=== PATIENT | female | born 1995 | race Caucasian/White ===

== ENCOUNTER 2017-03-10 12:31 | Emergency (ER) | payer OTHER ==
[2017-03-10 12:37] VITALS: BP 141/79; PULSE 79; TEMP 98; BMI 19.6
[2017-03-10] MEDS ORDERED: DEXAMETHASONE LIQUID 0.5 MG/5 ML 240 ML BULK BOTTLE PO ONE (15:38)
--- NOTE | 2017-03-10 15:49 | PDOC ---
History of Present Illness - General Chief Complaint: Syncope/Near Syncope Stated Complaint: SYNCOPE, THROAT PAIN Time Seen by Provider: 03/10/17 15:10 History Source: Patient Exam Limitations: No Limitations - History of Present Illness Initial Comments: 03/10/17 15:50 This is a 22 yo woman without PMH presents with syncope on 03/09 and currently with a sore throat. She states she was walking to go to bed then awoke on floor of her bedroom. She states this has happened in the past but was never fully worked up. She reports her "throat is closing" but is able to swallow her own saliva and denies vocal changes. Large visible mass present to right anterolateral neck. She denies fevers, chills, chest pain, odynophagia, vomiting, chest pain or SOB. Timing/Duration: 24 hours Severity: mild Associated Symptoms: reports: denies symptoms Past History - Travel Traveled outside of the country in the last 30 days: No Close contact w/someone who was outside of country & ill: No - Past Medical History Allergies/Adverse Reactions: Allergies Allergy/AdvReac Type Severity Reaction Status Date / Time No Known Allergies Allergy Verified 03/10/17 12:35 Other medical history: denies - Immunization History Immunization Up to Date: Yes - Psycho/Social/Smoking Cessation Hx Suicidal Ideation: No Smoking History: Never smoked Hx Alcohol Use: No Drug/Substance Use Hx: No Substance Use Type: None Review of Systems - Review of Systems Able to Perform ROS?: Yes Is the patient limited Syrian proficient: No Constitutional: No: Symptoms Reported HEENTM: Yes: Throat Swelling Respiratory: No: Symptoms reported Cardiac (ROS): Yes: Syncope (on 03/09) ABD/GI: No: Symptoms Reported : No: Symptoms Reported Musculoskeletal: No: Symptoms Reported Integumentary: No: Symptoms Reported Neurological: No: Symptoms reported *Physical Exam - Vital Signs Last Vital Signs Temp Pulse Resp BP Pulse Ox 98.0 F 79 18 141/79 100 03/10/17 12:35 03/10/17 12:35 03/10/17 12:35 03/10/17 12:35 03/10/17 12:35 - Physical Exam General Appearance: Yes: Appropriately Dressed. No: Apparent Distress HEENT: positive: EOMI, MARY, Normal ENT Inspection, Normal Voice, Tonsillar Erythema (left side only) Neck: positive: Trachea midline, Lymphadenopathy (R). negative: Carotid bruit Respiratory/Chest: positive: Lungs Clear, Normal Breath Sounds. negative: Respiratory Distress, Accessory Muscle Use Cardiovascular: positive: Regular Rhythm, Regular Rate, S1, S2. negative: Edema , JVD, Murmur Gastrointestinal/Abdominal: positive: Normal Bowel Sounds, Soft. negative: Tender, Organomegaly Lymphatic: positive: Adenopathy (right axilla) Musculoskeletal: positive: Normal Inspection. negative: CVA Tenderness Extremity: positive: Normal Capillary Refill, Normal Inspection, Normal Range of Motion Integumentary: positive: Normal Color, Dry, Warm Neurologic: positive: director clinical research II-XII NML intact, Fully Oriented, Alert, Normal Mood/ Affect, Normal Response, Motor Strength 11/25 Medical Decision Making - Medical Decision Making 03/10/17 16:56 A/P: This is a 22 yo woman without PMH presents with syncope on 03/09 and currently with a sore throat. She states she was walking to go to bed then awoke on floor of her bedroom. She states this has happened in the past but was never fully worked up. She reports her "throat is closing" but is able to swallow her own saliva and denies vocal changes. Large visible mass present to right anterolateral neck. She denies fevers, chills, chest pain, odynophagia, vomiting, chest pain or SOB. Pt with family h/o thyroid disorder. Large palpable lymph node present in right axilla. - CBC, CMP, TSH - CT neck - decadron 10mg PO - reassess *DC/Admit/Observation/Transfer Diagnosis at time of Disposition: Eloped - Discharge Dispostion Disposition: ELOPED Condition at time of disposition: Unchanged/Unknown
--- NOTE | 2017-03-10 15:51 | PDOC ---
*Physical Exam - Vital Signs Last Vital Signs Temp Pulse Resp BP Pulse Ox 98.0 F 79 18 141/79 100 03/10/17 12:35 03/10/17 12:35 03/10/17 12:35 03/10/17 12:35 03/10/17 12:35 Medical Decision Making - Medical Decision Making 03/10/17 23:08 Pt eloped from ER prior to my evaluation. Pt was unable to be located in ER. Attempts to call pt's home were unanswered. *DC/Admit/Observation/Transfer Diagnosis at time of Disposition: Eloped - Discharge Dispostion Disposition: ELOPED
[2017-03-10] MEDS ORDERED: DEXAMETHASONE SOD PHOSPHATE 10 MG/1 ML VIAL ONE (16:22)
== END 2017-03-10 16:27 | disposition left against medical advice (07) ==
LOC: JER 12:31
DX: J02.9 Acute pharyngitis, unspecified (principal)
CPT/HCPCS: 99281-25

== ENCOUNTER 2017-04-27 12:18 | Emergency (ER) | payer OTHER ==
[2017-04-27 12:23] VITALS: BP 110/61; PULSE 91; TEMP 98.9; BMI 19.4
--- NOTE | 2017-04-27 12:42 | PDOC ---
History of Present Illness - General Chief Complaint: Pain Stated Complaint: PAIN ABD/NAUSEA Time Seen by Provider: 04/27/17 12:41 - History of Present Illness Initial Comments: 04/27/17 12:41 Ms. Melendez is a 22 yo female with no significant past medical history who presents to the emergency department sent from urgent care with complaints of lower abdominal pain bilaterally for the last 2 days. She says that the pain is about an 8/10, constant, and has caused her to vomit several times. She started her period on monday but says that this is different than her usual cramps which are typically lower. The patient denies chest pain, shortness of breath, headache and dizziness. Denies fever, chills, diarrhea and constipation. Denies dysuria, frequency, urgency and hematuria. Allergies: NKDA Past surgical history: Distant arm surgery for break Social history: Denies Past History - Past Medical History Allergies/Adverse Reactions: Allergies Allergy/AdvReac Type Severity Reaction Status Date / Time No Known Allergies Allergy Verified 04/27/17 12:23 Other medical history: denies - Immunization History Immunization Up to Date: Yes - Suicide/Smoking/Psychosocial Hx Smoking History: Never smoked Information on smoking cessation initiated: No Hx Alcohol Use: No Drug/Substance Use Hx: No Substance Use Type: None Review of Systems - Review of Systems Comments:: 04/27/17 12:41 GENERAL/CONSTITUTIONAL: No fever or chills. No weakness. HEAD, EYES, EARS, NOSE AND THROAT: No change in vision. No ear pain or discharge. No sore throat. CARDIOVASCULAR: No chest pain or shortness of breath RESPIRATORY: No cough, wheezing, or hemoptysis. GASTROINTESTINAL: +nausea from bilateral lower abdominal pain with associated vomiting, no diarrhea or constipation. GENITOURINARY: No dysuria, frequency, or change in urination. MUSCULOSKELETAL: No joint or muscle swelling or pain. No neck or back pain. SKIN: No rash NEUROLOGIC: No headache, vertigo, loss of consciousness, or change in strength/ sensation. ENDOCRINE: No increased thirst. No abnormal weight change HEMATOLOGIC/LYMPHATIC: No anemia, easy bleeding, or history of blood clots. ALLERGIC/IMMUNOLOGIC: No hives or skin allergy. *Physical Exam - Vital Signs Last Vital Signs Temp Pulse Resp BP Pulse Ox 98.9 F 91 H 18 110/61 100 04/27/17 12:20 04/27/17 12:20 04/27/17 12:20 04/27/17 12:20 04/27/17 12:20 - Physical Exam Comments: 04/27/17 12:41 GENERAL: Awake, alert, and fully oriented, in no acute distress HEAD: No signs of trauma, normocephalic, atraumatic EYES: PERRLA, EOMI, sclera anicteric, conjunctiva clear ENT: Auricles normal inspection, hearing grossly normal, nares patent, oropharynx clear without exudates. Moist mucosa NECK: Normal ROM, supple, no lymphadenopathy, JVD, or masses LUNGS: No distress, speaks full sentences, clear to auscultation bilaterally HEART: Regular rate and rhythm, normal S1 and S2, no murmurs, rubs or gallops, peripheral pulses normal and equal bilaterally. ABDOMEN: +Tender to palpation bilaterally in lower abdomen, Soft, normoactive bowel sounds. No guarding, no rebound. No masses EXTREMITIES: Normal inspection, Normal range of motion, no edema. No clubbing or cyanosis. NEUROLOGICAL: Cranial nerves II through XII grossly intact. Normal speech, normal gait, no focal sensorimotor deficits SKIN: Warm, Dry, normal turgor, no rashes or lesions noted. ED Treatment Course - LABORATORY CBC & Chemistry Diagram: 04/27/17 13:40 04/27/17 13:40 Medical Decision Making - Medical Decision Making 04/27/17 17:04 Patient presents with abdominal pain bilaterally. test / UA negative, CT abdomen/pelvis showed no acute findings. Patient advised this is probably normal menstral cramps with atypical presentation for her. Advised to follow-up with PCP outpatient. Laboratory Results - last 24 hr 04/27/17 04/27/17 04/27/17 13:40 13:40 13:40 WBC 6.7 RBC 4.17 Hgb 12.5 Hct 37.7 MCV 90.4 MCH 30.1 MCHC 33.2 RDW 12.6 Plt Count 145 MPV 8.8 Neutrophils % 52.7 Lymphocytes % 38.4 Monocytes % 7.0 Eosinophils % 1.4 Basophils % 0.5 Sodium 138 Potassium 4.1 Chloride 106 Carbon Dioxide 24 Anion Gap 8 BUN 12 Creatinine 0.6 Creat Clearance w eGFR > 60 Random Glucose 81 Calcium 9.2 Total Bilirubin 0.4 AST 13 L ALT 21 Alkaline Phosphatase 71 Total Protein 7.4 Albumin 3.8 Urine Color Yellow Urine Appearance Slcloudy Urine pH 5.0 Urine Protein Negative Urine Glucose (UA) Negative Urine Ketones Negative Urine Blood 1+ H Urine Nitrite Negative Urine Bilirubin Negative Urine Urobilinogen Negative Urine RBC <1 Urine WBC <1 Ur Epithelial Cells Rare Urine Mucus Rare Urine HCG, Qual Negative *DC/Admit/Observation/Transfer Diagnosis at time of Disposition: Crampy pain associated with menses - Discharge Dispostion Disposition: HOME - Patient Instructions Printed Discharge Instructions: DI for Dysmenorrhea
[2017-04-27] MEDS ORDERED: SODIUM CHLORIDE 1,000 ML IV STA (12:51)
[2017-04-27] MEDS ORDERED: ONDANSETRON 4 MG/2 ML VIAL IVPUSH ONE (12:51)
[2017-04-27] MEDS ORDERED: ONDANSETRON 4 MG/2 ML VIAL ONE (13:31)
--- NOTE | 2017-04-27 13:39 | PDOC ---
Attending Attestation - Resident Resident Name: Spenser Hoyt - ED Attending Attestation I have performed the following: I have examined & evaluated the patient, The case was reviewed & discussed with the resident, I agree w/resident's findings & plan, Exceptions are as noted - HPI HPI: 04/27/17 13:33 22yo F with no PMH p/w b/l lower abd pain since Monday a/w nausea and vomiting. Denies fevers, chills, dysuria, frequency, CP, SOB. Is on her period now since Monday. Went to urgent care this morning and they checked a UA and sent her here for a CT study. - Physicial Exam PE: 04/27/17 13:39 GENERAL: Awake, alert, and fully oriented, in no acute distress HEAD: No signs of trauma EYES: PERRLA, EOMI, sclera anicteric, conjunctiva clear ENT: Auricles normal inspection, hearing grossly normal, nares patent, oropharynx clear without exudates. Moist mucosa NECK: Normal ROM, supple, no lymphadenopathy, JVD, or masses LUNGS: Breath sounds equal, clear to auscultation bilaterally. No wheezes, and no crackles HEART: Regular rate and rhythm, normal S1 and S2, no murmurs, rubs or gallops ABDOMEN: Soft, RLQ >LLQ ttp, normoactive bowel sounds. No guarding, no rebound. No masses TOLL LINE REPAIRER: blood in vault - pt is menstruating. No adnexal or midline ttp. No CMT. EXTREMITIES: Normal range of motion, no edema. No clubbing or cyanosis. No cords, erythema, or tenderness NEUROLOGICAL: Normal speech, cranial nerves intact, negative pronator drift, 5/ 5 strength in all 4 extremities, normal sensation to light touch in all 4 extremities, normal cerebellar exam, normal gait, normal reflexes and tone SKIN: Warm, Dry, normal turgor, no rashes or lesions noted. - Medical Decision Making 04/27/17 13:39 22-year-old healthy female presents with 3 days of lower abdominal pain associated with nausea and vomiting. Vitals are unremarkable. Exam with right lower quadrant and left lower quadrant tenderness to palpation. Differential includes but is not limited to appendicitis versus versus colitis versus enteritis. -labs -UA -UPT -pelvic exam -consider TVUS/CT -pain control
[2017-04-27 13:50] LABS: BASOPHIL 0.5 % (0-2.0); EOSINOPHIL 1.4 % (0-4.5); MCH 30.1 pg (25.7-33.7); MCHC 33.2 g/dl (32.0-36.0); MEAN CELL VOLUME 90.4 fl (80-96); MEAN PLT VOLUME 8.8 fl (7.5-11.1); NEUTROPHILS 52.7 % (42.8-82.8); PLATELET COUNT 145 K/MM3 (134-434); RDW 12.6 % (11.6-15.6); URINE APPEARANCE SLCLOUDY; URINE BILIRUBIN NEGATIVE (NEGATIVE); URINE BLOOD 1+ (NEGATIVE); URINE COLOR YELLOW; URINE GLUCOSE (UA) NEGATIVE (NEGATIVE); URINE KETONE NEGATIVE (NEGATIVE); URINE NITRITE NEGATIVE (NEGATIVE); URINE PROTEIN NEGATIVE (NEGATIVE); URINE UROBILINOGEN NEGATIVE mg/dL (0.2-1.0); WHITE BLOOD COUNT 6.7 K/mm3 (4.0-10.0)
[2017-04-27 14:00] LABS: URINE MUCUS RARE; URINE RBC <1 /hpf (0-3); URINE WBC <1 /hpf (3-5)
[2017-04-27 14:21] LABS: ALBUMIN 3.8 g/dl (3.4-5.0); ALK PHOS 71 U/L (45-117); ANION GAP 8 (8-16); BILIRUBIN,TOTAL 0.4 mg/dL (0.2-1.0); CALCIUM 9.2 mg/dL (8.5-10.1); CO2 24 mmol/L (21-32); CREATININE 0.6 mg/dL (0.55-1.02); GLUCOSE,RANDOM 81 mg/dL (74-106); SGOT/AST 13 U/L (15-37); SGPT/ALT 21 U/L (12-78); TOT PROT 7.4 g/dl (6.4-8.2)
[2017-04-27 18:09] LABS: URINE LEUK ESTERASE Negative (NEGATIVE)
== END 2017-04-27 17:35 | disposition home or self-care (01) ==
LOC: JER 12:18
PROC: 3E033GC Introduction of Other Therapeutic Substance into Peripheral Vein, Percutaneous Approach (ICD-10-PCS; principal; 2017-04-27)
PROC: 3E0337Z Introduction of Electrolytic and Water Balance Substance into Peripheral Vein, Percutaneous Approach (ICD-10-PCS; 2017-04-27)
DX: N94.89 Other specified conditions associated with female genital organs and menstrual cycle (principal)
CPT/HCPCS: 36415; 74177-TC; 80053; 81003; 81015; 84703; 85025; 96361; 96374; 99282-25

== ENCOUNTER 2017-07-28 13:56 | Emergency (ER) | payer OTHER ==
[2017-07-28 14:07] VITALS: BP 115/70; PULSE 81; TEMP 97.8; BMI 19.7
--- NOTE | 2017-07-28 14:33 | PDOC ---
History of Present Illness - General Chief Complaint: Head/Neck problem Stated Complaint: NECK PAIN Time Seen by Provider: 07/28/17 14:26 History Source: Patient Exam Limitations: No Limitations - History of Present Illness Initial Comments: CHIEF COMPLAINT: HISTORY OF PRESENT ILLNESS: Vital signs on arrival are notable for pulse of 108. REVIEW OF SYSTEMS: GENERAL/CONSTITUTIONAL: Subjective fever/chills. No weakness. No weight change. HEAD, EYES, EARS, NOSE AND THROAT: No change in vision. No ear pain or discharge. No sore throat. CARDIOVASCULAR: No chest pain or shortness of breath. RESPIRATORY: No cough, wheezing, or hemoptysis. GASTROINTESTINAL: See history of present illness. GENITOURINARY: No dysuria, frequency, or change in urination. MUSCULOSKELETAL: No joint or muscle swelling or pain. No neck or back pain. SKIN: No rash or easy bruising. NEUROLOGIC: No headache, vertigo, loss of consciousness, or loss of sensation. PHYSICAL EXAM: GENERAL: The patient is awake, alert, and fully oriented, in no acute distress. HEAD: Normal with no signs of trauma. ENT: Pupils equal, round and reactive to light, extraocular movements intact, sclera anicteric, conjunctiva clear. Neck supple. LUNGS: Clear to auscultation bilaterally. Normal excursion. No respiratory distress or use of accessory muscles. CV: RRR, S1/S2, no MRG. Cap refill < 2 sec. ABDOMEN: Soft, non-distended, non-tender even to deep palpation, no hepatomegaly or splenomegaly, no masses. EXTREMITIES: Normal range of motion, no edema. NEUROLOGICAL: Normal speech, normal gait. CN II-XII grossly intact. PSYCH: Normal mood, normal affect. SKIN: Warm, dry, normal turgor, no rashes or lesions noted. Past History - Past Medical History Allergies/Adverse Reactions: Allergies Allergy/AdvReac Type Severity Reaction Status Date / Time No Known Allergies Allergy Verified 07/28/17 14:04 COPD: No - Immunization History Immunization Up to Date: Yes - Suicide/Smoking/Psychosocial Hx Smoking History: Never smoked Hx Alcohol Use: No Drug/Substance Use Hx: No Substance Use Type: None *Physical Exam - Vital Signs Last Vital Signs Temp Pulse Resp BP Pulse Ox 97.8 F 81 18 115/70 100 07/28/17 14:04 07/28/17 14:04 07/28/17 14:04 07/28/17 14:04 07/28/17 14:04
--- NOTE | 2017-07-28 15:14 | PDOC ---
History of Present Illness - General Chief Complaint: Head/Neck problem Stated Complaint: NECK PAIN Time Seen by Provider: 07/28/17 14:26 - History of Present Illness Initial Comments: 07/28/17 15:08 CHIEF COMPLAINT: pain to R shoulder, lump to neck and armpit HISTORY OF PRESENT ILLNESS: 22 yo F with no significant PMH presents to fast track with pain to R arm and shoulder and new "lump to armpit and neck" that she just noticed yesterday. Patient denies any fever, chills, nausea, vomiting, diarrhea, or any infectious symptoms, and states that the bumps on her neck and armpit to not hurt. Patient states she does not have a primary care doctor. PAST MEDICAL HISTORY: Denies past medical history FAMILY HISTORY: Denies SOCIAL HISTORY: Denies tobacco, alcohol, illicit drug use. SURGICAL HISTORY: Denies ALLERGIES: No known drug allergies REVIEW OF SYSTEMS General/Constitutional: Denies fever or chills. Denies weakness, weight change. HEENT: "Lump on my neck." Denies change in vision. Denies ear pain or discharge. Denies sore throat. Cardiovascular: Denies chest pain or shortness of breath. Respiratory: Denies cough, wheezing, or hemoptysis. Gastrointestinal: Denies nausea, vomiting, diarrhea or constipation. Denies rectal bleeding. Genitourinary: Denies dysuria, frequency, or change in urination. Musculoskeletal: Denies joint or muscle swelling or pain. Denies neck or back pain. Skin and breasts: "I have a lump to my right armpit." Denies rash or easy bruising. Neurologic: Denies headache, vertigo, loss of consciousness, or loss of sensation. PHYSICAL EXAM General Appearance: Well-appearing, appropriately dressed. No apparent distress. HEENT: EOMI, PERRLA, normal ENT inspection, normal voice, TMs normal, pharynx normal. No conjunctival pallor. No photophobia, scleral icterus. Neck: 2 in by 2 inch firm, non-tender, mobile mass to inferior R neck. Supple. Trachea midline. Respiratory/Chest: Lungs CTAB. No shortness of breath, chest tenderness, respiratory distress, accessory muscle use. No crackles, rales, rhonchi, stridor , wheezing, dullness Cardiovascular: RRR. S1, S2. No JVD, murmur, bradycardia, tachycardia. Gastrointestinal/Abdominal: Normal bowel sounds. Abdomen soft, non-distended. No tenderness or rebound tenderness. No organomegaly, pulsatile mass, guarding , hernia, hepatomegaly, splenomegaly. Musculoskeletal/Extremities: Tenderness to R trapezius with palpation. 2in by 2 inc mobile, mildly tender mass to R axillae. FROM of all extremities, normal capillary refill. Pelvis Stable. No CVA tenderness. No tenderness to extremities, pedal edema, swelling, erythema or deformity. Integumentary: Scar to skin over right scapula approximate 1 cm x 1 cm. Appropriate color, dry, warm. No cyanosis, erythema, jaundice or rash Neurologic: croze cutter helper II-XII intact. Fully oriented, alert. Appropriate mood/affect. Motor strength 5/5. No appreciable EOM palsy, facial droop or sensory deficit. Past History - Past Medical History Allergies/Adverse Reactions: Allergies Allergy/AdvReac Type Severity Reaction Status Date / Time No Known Allergies Allergy Verified 07/28/17 14:04 Home Medications: Ambulatory Orders Ibuprofen 600 mg PO TID PRN #30 tablet 07/28/17 COPD: No - Immunization History Immunization Up to Date: Yes - Suicide/Smoking/Psychosocial Hx Smoking History: Never smoked Hx Alcohol Use: No Drug/Substance Use Hx: No Substance Use Type: None *Physical Exam - Vital Signs Last Vital Signs Temp Pulse Resp BP Pulse Ox 97.8 F 81 18 115/70 100 07/28/17 14:04 07/28/17 14:04 07/28/17 14:04 07/28/17 14:04 07/28/17 14:04 ED Treatment Course - LABORATORY CBC & Chemistry Diagram: 07/28/17 15:26 07/28/17 15:25 - ADDITIONAL ORDERS Additional order review: Laboratory Results 07/28/17 14:40 Urine HCG, Qual Negative - RADIOLOGY Radiology Studies Ordered: Category Date Time Status CHEST PA & LAT [RAD] Stat Radiology 07/28/17 14:55 Ordered Medical Decision Making - Medical Decision Making 07/28/17 15:14 22 yo F with no significant PMH presents to fast track with pain to R arm and shoulder and new "lump to armpit and neck" that she just noticed yesterday Patient reports that the scar on her left scapular region was from a biopsy taken "when I was younger" but "everything was ok." Given acute presentation of nontender, large masses, there is concern for malignancy. -CBC, CMP -CXR Labs wnl, CXR negative for acute findings. -Toradol IM for pain of shoulder Discussed with patient that it is imperative that she get further follow up with PCP and that she may need a biopsy of the masses to her neck and axillae. Directed patient to see PCP within the next week and of signs and symptoms for return to ER; patient verbalized understanding and agrees to plan. *DC/Admit/Observation/Transfer Diagnosis at time of Disposition: Arm pain, right, Mass in neck Mass in armpit Qualifiers: Laterality: right Qualified Code(s): R22.31 - Localized swelling, mass and lump , right upper limb - Discharge Dispostion Disposition: HOME Condition at time of disposition: Stable Admit: No - Prescriptions Prescriptions: Ibuprofen 600 mg PO TID PRN #30 tablet PRN Reason: Pain - Referrals Referrals: Tami Galvan MD [Staff Physician] - - Patient Instructions Printed Discharge Instructions: DI for Arm Pain Additional Instructions: You MUST follow up with a primary care doctor WITHIN THE NEXT WEEK for further evaluation of the masses on your neck and your armpit. If you develop ANY fever , chills, vomiting, diarrhea, or any new or worsening symptoms, please return to the ER immediately. - Post Discharge Activity
[2017-07-28 15:34] LABS: BASO % 0.3 % (0-2.0); HEMATOCRIT 37.7 % (32.4-45.2); HEMOGLOBIN 12.7 GM/dL (10.7-15.3); MCH 30.5 pg (25.7-33.7); MCHC 33.8 g/dl (32.0-36.0); MEAN CELL VOLUME 90.3 fl (80-96); MEAN PLT VOLUME 8.7 fl (7.5-11.1); MONO % 5.8 % (3.8-10.2); NEUT % 63.9 % (42.8-82.8); PLATELET COUNT 158 K/MM3 (134-434); RBC 4.18 M/mm3 (3.60-5.2); RDW 12.7 % (11.6-15.6); WHITE BLOOD COUNT 8.2 K/mm3 (4.0-10.0)
[2017-07-28 16:08] LABS: ALBUMIN 4.1 g/dl (3.4-5.0); ANION GAP 6 (8-16); BLOOD UREA NITROGEN 13 mg/dL (7-18); CALCIUM 9.1 mg/dL (8.5-10.1); CHLORIDE 104 mmol/L (98-107); CO2 28 mmol/L (21-32); CREATININE 0.6 mg/dL (0.55-1.02); GLUCOSE,RANDOM 85 mg/dL (74-106); SGOT/AST 14 U/L (15-37); SGPT/ALT 21 U/L (12-78); SODIUM 138 mmol/L (136-145)
[2017-07-28 16:11] LABS: ALK PHOS 69 U/L (45-117); BILIRUBIN,TOTAL 0.3 mg/dL (0.2-1.0); TOT PROT 7.7 g/dl (6.4-8.2)
[2017-07-28] MEDS ORDERED: KETOROLAC TROMETHAMINE 60 MG/2 ML VIAL IM ONE (16:17)
[2017-07-28] MEDS ORDERED: KETOROLAC TROMETHAMINE 60 MG/2 ML VIAL ONE (16:29)
== END 2017-07-28 16:41 | disposition home or self-care (01) ==
LOC: JERFT 13:56
PROC: 3E0233Z Introduction of Anti-inflammatory into Muscle, Percutaneous Approach (ICD-10-PCS; principal; 2017-07-28)
DX: R22.31 Localized swelling, mass and lump, right upper limb (principal); R22.1 Localized swelling, mass and lump, neck
CPT/HCPCS: 36415; 71046-TC; 80053; 84703; 85025; 96372; 99281-25